=== PATIENT | male | born 2000 | race Asian ===

== ENCOUNTER 2023-05-14 17:01 | Emergency (ER) | payer BC ==
[2023-05-14] MEDS ORDERED: Boostrix 0.5 ML (Tdap) VIAL (>/=7 yrs of age) ONE (18:35)
== END 2023-05-14 18:24 | disposition home or self-care (01) ==
LOC: CSHERS 17:01
DX: S61.217A Laceration without foreign body of left little finger without damage to nail, initial encounter (principal); Z23 Encounter for immunization; W26.8XXA Contact with other sharp object(s), not elsewhere classified, initial encounter
CPT/HCPCS: 90471; 90715